=== PATIENT | male | born 1985 | race American Indian/Alaskan Native ===

== ENCOUNTER 2017-01-26 04:59 | Emergency (ER) | payer OTHER ==
[2017-01-26] MEDS ORDERED: NACL ONE (05:33)
[2017-01-26 05:52] LABS: Basophils % (Auto) 0.6 % (0.0-1.8); Eosinophils % (Auto) 6.4 % (0.0-4.3); Hematocrit 40.3 % (35.5-45.6); Hemoglobin 13.8 gm/dl (11.8-15.2); Mean Corpuscular HGB Conc 34 % (32-34); Mean Corpuscular Hemoglobin 30 pg (28-32); Mean Corpuscular Volume 87 fl (84-94); Platelet Count 189 K/mm3 (140-440); Red Blood Count 4.61 M/mm3 (3.65-5.03); White Blood Count 5.5 K/mm3 (4.5-11.0)
[2017-01-26 06:14] LABS: Alanine Aminotransferase 20 units/L (7-56); Albumin 4.5 g/dL (3.9-5); Albumin/Globulin Ratio 1.4 %; Alkaline Phosphatase 76 units/L (35-129); Anion Gap 18 mmol/L; Blood Urea Nitrogen 19 mg/dL (9-20); Carbon Dioxide 26 mmol/L (22-30); Chloride 100.2 mmol/L (98-107); Glucose 101 mg/dL (75-100); Potassium 3.3 mmol/L (3.6-5.0); Sodium 141 mmol/L (137-145); Total Protein 7.7 g/dL (6.3-8.2)
[2017-01-26] MEDS ORDERED: K-DUR PO ONE (06:20)
[2017-01-26] MEDS ORDERED: NORCO 5/325 PO ONE (06:35)
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
[2017-01-26] MEDS ORDERED: TETRACAINE 0.5% ONE (09:42)
[2017-01-26] MEDS ORDERED: FUL-GLO OP ONE ×2 (09:42→09:59)
[2017-01-26 09:47] VITALS: BP 112/79
[2017-01-26] MEDS ORDERED: TETRACAINE 0.5% OU ONE (09:50)
== END 2017-01-26 10:25 | disposition home or self-care (01) ==
LOC: ED 04:59
DX: M25.562 Pain in left knee (principal); M25.522 Pain in left elbow; M54.2 Cervicalgia; J45.909 Unspecified asthma, uncomplicated; H53.8 Other visual disturbances
CPT/HCPCS: 36415; 70450; 72125; 72128; 80053; 85025